=== PATIENT | male | born 1975 | race African-American/Black ===

== ENCOUNTER → 2016-11-21 | Outpatient (CLI) | payer OTHER ==
[2016-11-21 12:43] LABS: ABSOLUTE EOSINOPHILS # (AUTO) 0.3 10^3/uL (0.0-0.6); ABSOLUTE LYMPHOCYTES (AUTO) 1.7 10^3/uL (0.5-4.7); ABSOLUTE MONOCYTES (AUTO) 0.6 10^3/uL (0.1-1.4); ABSOLUTE NEUT (AUTO) 5.6 10^3/uL (1.7-8.2); BASOPHILS % (AUTO) 0.5 % (0-2); EOSINOPHILS % (AUTO) 4.1 % (0-6); HEMATOCRIT 37.5 % (37.9-51.0); HEMOGLOBIN 12.2 g/dL (13.5-17.0); HGB HCT DIFFERENCE -0.9; LYMPHOCYTES % (AUTO) 20.5 % (13-45); MEAN CORPUSCULAR HEMOGLOBIN 29.4 pg (27.0-33.4); MEAN CORPUSCULAR HGB CONC 32.6 g/dL (32.0-36.0); MEAN CORPUSCULAR VOLUME 90 fl (80-97); MONOCYTES % (AUTO) 7.5 % (3-13); RED BLOOD COUNT 4.17 10^6/uL (4.35-5.55); RED CELL DISTRIBUTION WIDTH 15.1 % (11.5-14.0); SEGMENTED NEUTROPHILS % (AUTO) 67.4 % (42-78); WHITE BLOOD COUNT 8.3 10^3/uL (4.0-10.5)
[2016-11-21 13:19] LABS: ALANINE AMINOTRANSFERASE 21 U/L (21-72); ALBUMIN 3.6 g/dL (3.5-5.0); ALKALINE PHOSPHATASE 73 U/L (38-126); ANION GAP 13 (5-19); ASPARTATE AMINO TRANSFERASE 16 U/L (17-59); BILIRUBIN,DIRECT 0.3 mg/dL (0.0-0.4); BILIRUBIN,TOTAL 0.9 mg/dL (0.2-1.3); BLOOD UREA NITROGEN 15 mg/dL (7-20); CALCIUM 9.2 mg/dL (8.4-10.2); CARBON DIOXIDE 26 mmol/L (22-30); CHLORIDE 104 mmol/L (98-107); CREATININE RESULT 1.39 mg/dL (0.52-1.25); Direct HDL 51 mg/dL (>40); GLUCOSE 99 mg/dL (75-110); TOTAL PROTEIN 6.6 g/dL (6.3-8.2); TRIGLYCERIDES 106 mg/dL (<150)
[2016-11-21 13:21] LABS: POTASSIUM 4.2 mmol/L (3.6-5.0)
[2016-11-21 13:30] LABS: DIRECT LDL 82 mg/dL (<100)
== END ==
LOC: OD 11:17
DX: I10 Essential (primary) hypertension (principal); E11.9 Type 2 diabetes mellitus without complications
CPT/HCPCS: 36415; 80053; 80061; 83036; 84153; 84443; 85025

== ENCOUNTER → 2017-05-11 | Outpatient (CLI) | payer OTHER | LOC: CCC 10:10 | DX: D64.9 Anemia, unspecified (principal) | CPT/HCPCS: 36415; 82728; 83540; 83550 ==

== ENCOUNTER 2017-09-25 13:12 | Emergency (ER) | payer SELFPAY ==
--- NOTE | 2017-09-25 15:06 | ER Document Report ---
ED General - General Chief Complaint: Arm Pain Stated Complaint: RIGHT ARM AND HAND PAIN Time Seen by Provider: 09/25/17 14:08 TRAVEL OUTSIDE OF THE [place] IN LAST 30 DAYS: No - HPI Patient complains to provider of: right wrist with electric shock Onset: Last week Onset/Duration: Waxing and waning - worse at night Quality of pain: Sharp Severity: Moderate Associated symptoms: None Exacerbated by: Denies Recently seen / treated by doctor: No - Related Data Allergies/Adverse Reactions: No Known Allergies Allergy (Verified 09/25/17 13:13) Past Medical History - Social History Smoking Status: Never Smoker Family History: Reviewed & Not Pertinent - Past Medical History Cardiac Medical History: Reports: Hx Hypertension - un treated for 3 years Endocrine Medical History: Reports: Hx Diabetes Mellitus Type 2 - no longer needs medication. 11years ago prior to appendectomy Past Surgical History: Reports: Hx Appendectomy, Hx Cholecystectomy, Hx Oral Surgery - Immunizations Hx Diphtheria, Pertussis, Tetanus Vaccination: Yes Review of Systems - Review of Systems Constitutional: No symptoms reported EENT: No symptoms reported Cardiovascular: No symptoms reported Respiratory: No symptoms reported Gastrointestinal: No symptoms reported Genitourinary: No symptoms reported Male Genitourinary: No symptoms reported Musculoskeletal: No symptoms reported Skin: No symptoms reported Hematologic/Lymphatic: No symptoms reported Neurological/Psychological: See HPI Physical Exam - Vital signs Vitals: Temp Pulse Resp BP Pulse Ox 98.8 F 81 16 138/87 H 98 09/25/17 13:23 09/25/17 13:23 09/25/17 13:23 09/25/17 13:23 09/25/17 13:23 - Notes Notes: PHYSICAL EXAMINATION: GENERAL: Well-appearing, well-nourished and in no acute distress. HEAD: Atraumatic, normocephalic. EYES: Pupils equal round and reactive to light, extraocular movements intact, sclera anicteric, conjunctiva are normal. ENT: Nares patent, oropharynx clear without exudates. Moist mucous membranes. NECK: Normal range of motion, supple without lymphadenopathy LUNGS: Breath sounds clear to auscultation bilaterally and equal. No wheezes rales or rhonchi. HEART: Regular rate and rhythm without murmurs ABDOMEN: Soft, nontender, nondistended abdomen. No guarding, no rebound. No masses appreciated. Musculoskeletal: Normal range of motion, no pitting or edema. No cyanosis. NEUROLOGICAL: Cranial nerves grossly intact. Normal speech, normal gait. Normal sensory, motor exams positive Phalen's and Tinel's right upper extremity. Upper extremity neurovascular intact. +2 radial pulse. No tingling with palpation over ulnar nerve. Range of motion of right upper shoulder area without pain reproducing of symptoms PSYCH: Normal mood, normal affect. SKIN: Warm, Dry, normal turgor, no rashes or lesions noted. Course - Vital Signs Vital signs: Temp Pulse Resp BP Pulse Ox 98.1 F 83 18 132/79 H 97 09/25/17 15:24 09/25/17 15:24 09/25/17 15:24 09/25/17 15:24 09/25/17 15:24 Discharge - Discharge Clinical Impression: Carpal tunnel syndrome of right wrist Condition: Stable Disposition: HOME, SELF-CARE Instructions: Carpal Tunnel Syndrome ([facility]) Prescriptions: Naproxen 500 mg PO BID 5 Days #10 tablet Referrals: AMANDA BENDER DO [ACTIVE STAFF] - Follow up in 3-5 days
[2017-09-25 15:26] VITALS: BP 132/79
== END 2017-09-25 15:24 | disposition home or self-care (01) ==
LOC: ER 13:12
DX: G56.01 Carpal tunnel syndrome, right upper limb (principal); E11.9 Type 2 diabetes mellitus without complications; I10 Essential (primary) hypertension
CPT/HCPCS: 99283; L3908

== ENCOUNTER → 2018-08-07 | Outpatient (CLI) | payer OTHER ==
[2018-08-07 11:24] LABS: ABSOLUTE EOSINOPHILS # (AUTO) 0.3 10^3/uL (0.0-0.6); ABSOLUTE MONOCYTES (AUTO) 0.5 10^3/uL (0.1-1.4); ABSOLUTE NEUT (AUTO) 5.4 10^3/uL (1.7-8.2); BASOPHILS % (AUTO) 0.5 % (0-2); EOSINOPHILS % (AUTO) 3.3 % (0-6); HEMATOCRIT 38.2 % (37.9-51.0); HEMOGLOBIN 12.9 g/dL (13.5-17.0); LYMPHOCYTES % (AUTO) 24.6 % (13-45); MEAN CORPUSCULAR HEMOGLOBIN 30.3 pg (27.0-33.4); MEAN CORPUSCULAR HGB CONC 33.7 g/dL (32.0-36.0); MEAN CORPUSCULAR VOLUME 90 fl (80-97); MONOCYTES % (AUTO) 6.2 % (3-13); PLATELET COUNT 424 10^3/uL (150-450); RED BLOOD COUNT 4.25 10^6/uL (4.35-5.55); SEGMENTED NEUTROPHILS % (AUTO) 65.4 % (42-78); TOTAL CELLS COUNTED % (AUTO) 100 %; WHITE BLOOD COUNT 8.3 10^3/uL (4.0-10.5)
[2018-08-07 11:40] LABS: ALANINE AMINOTRANSFERASE 16 U/L (21-72); ALKALINE PHOSPHATASE 73 U/L (38-126); ANION GAP 10 (5-19); ASPARTATE AMINO TRANSFERASE 17 U/L (17-59); BILIRUBIN,DIRECT 0.2 mg/dL (0.0-0.4); BILIRUBIN,TOTAL 0.8 mg/dL (0.2-1.3); BLOOD UREA NITROGEN 21 mg/dL (7-20); CARBON DIOXIDE 26 mmol/L (22-30); CHLORIDE 105 mmol/L (98-107); CHOLESTEROL 183.74 mg/dL (0-200); GLUCOSE 107 mg/dL (75-110); POTASSIUM 5.3 mmol/L (3.6-5.0); SODIUM 141.3 mmol/L (137-145); TOTAL PROTEIN 7.3 g/dL (6.3-8.2); TRIGLYCERIDES 108 mg/dL (<150)
[2018-08-07 11:51] LABS: DIRECT LDL 98 mg/dL (<100)
== END ==
LOC: CCC 09:52
DX: E11.8 Type 2 diabetes mellitus with unspecified complications (principal)
CPT/HCPCS: 36415; 80053; 80061; 83036; 84153; 84443; 85025

== ENCOUNTER 2019-02-01 19:37 | Emergency (ER) | payer SELFPAY ==
[2019-02-01] MEDS ORDERED: FENTANYL CITRATE INJ/PF 100 MCG/2 ML AMPUL IV ONE (21:45)
[2019-02-01] MEDS ORDERED: ONDANSETRON HCL INJ/PF 4 MG/2 ML SDV IV ONE (21:45)
--- NOTE | 2019-02-01 21:47 | ER Document Report ---
ED Medical Screen (RME) - General Chief Complaint: Abdominal Pain Stated Complaint: ABDOMINAL PAIN Time Seen by Provider: 02/01/19 21:44 Primary Care Provider: GWYN TORREZ [Primary Care Provider] - Follow up as needed Notes: Patient is a 43-year-old male morbidly obese presents to the emergency department for right-sided abdominal pain started around 930 this morning. Patient is complaining of generalized upper and lower right-sided abdominal pain. States he has vomited upwards of 6 times denying any blood. Patient's denying any diarrhea or fever. Patient states he does have a history of a cholecystectomy but is denying any other abdominal surgeries. GENERAL: Alert, interacts well. No acute distress. ABDOMEN: Morbidly obese soft, Non-distended. Bowel sounds present in all 4 quadrants. Generalized tenderness noted entire right abdomen upper and lower quadrants Exam somewhat limited due to patient sitting in a chair and excess subcutaneous tissue. I have greeted and performed a rapid initial assessment of this patient. A comprehensive ED assessment and evaluation of the patient, analysis of test results and completion of the medical decision making process will be conducted by additional ED providers. TRAVEL OUTSIDE OF THE [place] IN LAST 30 DAYS: No - Related Data Allergies/Adverse Reactions: No Known Allergies Allergy (Verified 02/01/19 19:40) Past Medical History - Past Medical History Cardiac Medical History: Reports: Hx Hypertension - un treated for 3 years Endocrine Medical History: Reports: Hx Diabetes Mellitus Type 2 - no longer needs medication. 11years ago prior to appendectomy Renal/ Medical History: Denies: Hx Peritoneal Dialysis Past Surgical History: Reports: Hx Appendectomy, Hx Cholecystectomy, Hx Oral Surgery - Immunizations Hx Diphtheria, Pertussis, Tetanus Vaccination: Yes Physical Exam - Vital signs Vitals: Temp Pulse Resp BP Pulse Ox 99.3 F 78 15 148/79 H 97 02/01/19 19:46 02/01/19 19:46 02/01/19 19:46 02/01/19 19:46 02/01/19 19:46 Course - Vital Signs Vital signs: Temp Pulse Resp BP Pulse Ox 99.3 F 78 15 148/79 H 97 02/01/19 19:46 02/01/19 19:46 02/01/19 19:46 02/01/19 19:46 02/01/19 19:46 Doctor's Discharge - Discharge Referrals: [facility] [Primary Care Provider] - Follow up as needed
[2019-02-01 22:48] LABS: ABSOLUTE BASOPHILS # (AUTO) 0.1 10^3/uL (0.0-0.2); ABSOLUTE EOSINOPHILS # (AUTO) 0.1 10^3/uL (0.0-0.6); ABSOLUTE LYMPHOCYTES (AUTO) 1.2 10^3/uL (0.5-4.7); ABSOLUTE MONOCYTES (AUTO) 0.9 10^3/uL (0.1-1.4); ABSOLUTE NEUT (AUTO) 11.7 10^3/uL (1.7-8.2); BASOPHILS % (AUTO) 0.7 % (0-2); EOSINOPHILS % (AUTO) 0.8 % (0-6); HEMATOCRIT 39.4 % (37.9-51.0); HEMOGLOBIN 12.8 g/dL (13.5-17.0); LYMPHOCYTES % (AUTO) 8.8 % (13-45); MEAN CORPUSCULAR HEMOGLOBIN 29.4 pg (27.0-33.4); MEAN CORPUSCULAR HGB CONC 32.6 g/dL (32.0-36.0); MEAN CORPUSCULAR VOLUME 90 fl (80-97); MONOCYTES % (AUTO) 6.2 % (3-13); PLATELET COUNT 352 10^3/uL (150-450); RED BLOOD COUNT 4.36 10^6/uL (4.35-5.55); RED CELL DISTRIBUTION WIDTH 15.1 % (11.5-14.0); SEGMENTED NEUTROPHILS % (AUTO) 83.5 % (42-78); TOTAL CELLS COUNTED % (AUTO) 100 %
[2019-02-01 23:19] LABS: APPEARANCE,URINE SLIGHTLY-CLOUDY; BILIRUBIN,URINE NEGATIVE (NEGATIVE); COLOR,URINE YELLOW; GLUCOSE, URINE NEGATIVE (NEGATIVE); KETONES,URINE NEGATIVE (NEGATIVE); LEUKOCYTE ESTERASE,URINE NEGATIVE (NEGATIVE); NITRITE,URINE NEGATIVE (NEGATIVE); PROTEIN,URINE NEGATIVE (NEGATIVE); URINE SPECIFIC GRAVITY 1.019; UROBILINOGEN,URINE NEGATIVE mg/dL (<2.0)
[2019-02-02 00:59] LABS: ALANINE AMINOTRANSFERASE 31 U/L (21-72); ALBUMIN 3.7 g/dL (3.5-5.0); ALKALINE PHOSPHATASE 76 U/L (38-126); ANION GAP 12 (5-19); ASPARTATE AMINO TRANSFERASE 22 U/L (17-59); BILIRUBIN,DIRECT 0.3 mg/dL (0.0-0.4); BILIRUBIN,TOTAL 1.2 mg/dL (0.2-1.3); BLOOD UREA NITROGEN 22 mg/dL (7-20); CALCIUM 9.3 mg/dL (8.4-10.2); CARBON DIOXIDE 19 mmol/L (22-30); CHLORIDE 110 mmol/L (98-107); GLUCOSE 130 mg/dL (75-110); SODIUM 140.8 mmol/L (137-145)
[2019-02-02] MEDS ORDERED: MORPHINE SULFATE 10 MG/ML INJ ONE (01:33)
[2019-02-02] MEDS ORDERED: MORPHINE SULFATE 10 MG/ML INJ IV ONE (01:36)
--- NOTE | 2019-02-02 02:15 | RADIOLOGY REPORT (SQ) ---
EXAM DESCRIPTION: CT ABDOMEN PELVIS WITHOUT IV CONTRAST COMPLETED DATE/TME: 02/02/2019 01:14 CLINICAL HISTORY: 43 years, Male, ab pain, arf COMPARISON: 09/21/2015 CT TECHNIQUE: 378 Images stored on PACS. All CT scanners at this facility use dose modulation, iterative reconstruction, and/or weight based dosing when appropriate to reduce radiation dose to as low as reasonably achievable (ALARA). [facility]: Dose Right [facility]: CareDose [facility]: Dose Right [facility]: Teradose 4D [facility]: [employer] LIMITATIONS: None. FINDINGS: The visual is lung bases are unremarkable. Osseous structures are grossly intact. The liver, spleen, left adrenal glands, pancreas, kidneys are unremarkable. Stable right adrenal adenoma. Negative for urinary tract calculus or hydronephrosis. Sigmoid diverticulosis without CT evidence for diverticulitis. No gross evidence for bowel obstruction. Status post cholecystectomy. The appendix is not well seen. No pericecal inflammation to suggest acute appendicitis. Fat-containing umbilical hernia. IMPRESSION: Negative for acute intra-abdominal/pelvic process. Sigmoid diverticulosis without CT evidence for diverticulitis. Stable right adrenal adenoma. TECHNICAL DOCUMENTATION: Quality ID # [id number]: Final reports with documentation of one or more dose reduction techniques (e.g., Automated exposure control, adjustment of the mA and/or kV according to patient size, use of iterative reconstruction technique) copyright 2011 [employer]- All Rights Reserved
[2019-02-02] MEDS ORDERED: NORMAL SALINE 1000 ML 1,000 ML IV ONE (02:53)
[2019-02-02] MEDS ORDERED: CEPHALEXIN 500 MG CAPSULE PO ONE (03:02)
--- NOTE | 2019-02-02 03:04 | ER Document Report ---
ED General - General Chief Complaint: Abdominal Pain Stated Complaint: ABDOMINAL PAIN Time Seen by Provider: 02/01/19 21:44 Primary Care Provider: [facility] [Primary Care Provider] - Follow up in 3-5 days Notes: Patient is a 43-year-old male with past medical history of morbid obesity, insulin-dependent type 2 diabetes, chronic kidney dysfunction, presents with approximately 16 hours of right-sided abdominal pain. Patient is a prior surgical history of a cholecystectomy and is uncertain whether he still has his appendix. Describes the pain as being a throbbing, cramping, moderate to severe pain. States that it comes in waves, improved at the time of my assessment. No obvious exacerbating or alleviating factor. Has had some associated nausea and vomiting but denies diarrhea. Has been able to tolerate oral intake since the onset of symptoms. Has not seen his general physician regarding today's concerns. States he has had similar episodes in the past of unclear etiology. Has not had a fever. TRAVEL OUTSIDE OF THE [place] IN LAST 30 DAYS: No - Related Data Allergies/Adverse Reactions: No Known Allergies Allergy (Verified 02/01/19 19:40) Past Medical History - General Information source: Patient - Social History Smoking Status: Never Smoker Frequency of alcohol use: None Drug Abuse: None Lives with: Family Family History: Reviewed & Not Pertinent Patient has suicidal ideation: No Patient has homicidal ideation: No - Past Medical History Cardiac Medical History: Reports: Hx Hypertension - un treated for 3 years Endocrine Medical History: Reports: Hx Diabetes Mellitus Type 2 - no longer needs medication. 11years ago prior to appendectomy Renal/ Medical History: Denies: Hx Peritoneal Dialysis Past Surgical History: Reports: Hx Appendectomy, Hx Cholecystectomy, Hx Oral Surgery - Immunizations Hx Diphtheria, Pertussis, Tetanus Vaccination: Yes Review of Systems - Review of Systems Notes: Constitutional: Negative for fever. HENT: Negative for sore throat. Eyes: Negative for visual changes. Cardiovascular: Negative for chest pain. Respiratory: Negative for shortness of breath. Gastrointestinal: Positive for abdominal pain, vomiting Genitourinary: Negative for dysuria. Musculoskeletal: Negative for back pain. Skin: Negative for rash. Neurological: Negative for headaches, weakness or numbness. 10 point ROS negative except as marked above and in HPI. Physical Exam - Vital signs Vitals: Temp Pulse Resp BP Pulse Ox 99.3 F 78 15 148/79 H 97 05/31/19 19:46 02/01/19 19:46 02/01/19 19:46 02/01/19 19:46 02/01/19 19:46 Interpretation: Hypertensive Notes: PHYSICAL EXAMINATION: GENERAL: Well-appearing, well-nourished and in no acute distress. HEAD: Atraumatic, normocephalic. EYES: Pupils equal round and reactive to light, extraocular movements intact, sclera anicteric, conjunctiva are normal. ENT: nares patent, oropharynx clear without exudates. Moist mucous membranes. NECK: Normal range of motion, supple without lymphadenopathy LUNGS: Breath sounds clear to auscultation bilaterally and equal. No wheezes rales or rhonchi. HEART: Regular rate and rhythm without murmurs ABDOMEN: Soft, morbidly obese abdomen, nontender, normoactive bowel sounds. No guarding, no rebound. No masses appreciated. EXTREMITIES: Normal range of motion, no pitting or edema. No cyanosis. NEUROLOGICAL: No focal neurological deficits. Moves all extremities spontaneously and on command. PSYCH: Normal mood, normal affect. SKIN: Warm, Dry, normal turgor, no rashes or lesions noted. Course - Re-evaluation Re-evalutation: 02/02/19 03:06 Patient presents with roughly 24 hours of generalized right-sided abdominal pain upper and lower as well as into the right flank. When I initially evaluate the patient is asking for something to eat and drink. States that his pain is overall much improved. On abdominal exam there are no areas of focal tenderness, rebound or guarding. No rigidity. Vitals are within normal limits without fever, tachycardia or hypotension. CT scan of the abdomen pelvis obtained without contrast due to renal functions which are somewhat worse than when he was seen in September with an approximate drop in his GFR of roughly 10 points. This does not demonstrate any evidence of acute pathology but does not well visualize the appendix. There is no associated evidence of acute appendi citis and the patient does not have any focal tenderness to the right lower quadrant nor is his history entirely consistent with a diagnosis of appendicitis. Patient states that he is following with his general physician regarding his chronic kidney disease. Pattern is not consistent with a prerenal azotemia. Patient has received IV fluids, antiemetics and is tolerating oral intake without any difficult. I have advised the patient that there is uncertainty regarding the cause of his symptoms today and he needs have a very low threshold to return to the emergency department. Given that he has gross hematuria nephrolithiasis that has since passed is certainly on the differential versus possible hemorrhagic cystitis. Empirically treating with a course of antibiotics. At this time will discharge with return precautions and follow-up recommendations. Verbal discharge instructions given a the bedside and opportunity for questions given. Medication warnings reviewed. Patient is in agr eement with this plan and has verbalized understanding of return precautions and the need for primary care follow-up in the next 24-72 hours. - Vital Signs Vital signs: Temp Pulse Resp BP Pulse Ox 99.3 F 78 15 148/79 H 97 02/01/19 19:46 02/01/19 19:46 02/01/19 19:46 02/01/19 19:46 02/01/19 19:46 - Laboratory Result Diagrams: 02/01/19 22:35 02/02/19 00:33 Laboratory results interpreted by me: 02/01/19 02/01/19 02/02/19 22:35 22:55 00:33 WBC 14.0 H Hgb 12.8 L RDW 15.1 H Seg Neutrophils % 83.5 H Lymphocytes % 8.8 L Absolute Neutrophils 11.7 H Chloride 110 H Carbon Dioxide 19 L BUN 22 H Creatinine 2.13 H Est GFR ( Amer) 41 L Est GFR (Non-Af Amer) 34 L Glucose 130 H Urine Blood LARGE H Urine Ascorbic Acid 40 H - Diagnostic Test Radiology reviewed: Reports reviewed Discharge - Discharge Clinical Impression: Morbid obesity with BMI of 70 and over, adult, Acute kidney injury superimposed on chronic kidney disease, Lower abdominal pain, Abdominal pain of unknown etiology Condition: Stable Disposition: HOME, SELF-CARE Additional Instructions: The exact cause of your abdominal pain is uncertain. Your labs are notable for a large amount of blood in your urine which could be related to your lower abdominal pain. The CT scan does not show any acute findings. As we discussed, given that there is an uncertainty about what the exact cause your pain is you need to have a low threshold to return to the emergency department. Please return immediately if you have worsening of your pain, develop a fever greater than 100.4 F, have persistent vomiting, pass out, or have any other symptoms that are worrisome to you. As we have also discussed her kidney functions are not normal and are worse than when you were seen in September. You need to follow-up with the community care in clinic for recheck of your blood work to ensure that your kidney function is not further deteriorating. Prescriptions: Tramadol HCl [Ultram 50 mg Tablet] 50 mg PO Q4HP PRN #6 tab PRN Reason: Cephalexin Monohydrate [Keflex 500 mg Capsule] 500 mg PO Q6H 7 Days capsule Referrals: [facility] [Primary Care Provider] - Follow up in 3-5 days
[2019-02-02] MEDS ORDERED: ONDANSETRON ODT 4 MG TAB (6 TAB/ER DISP) PO PRN (03:05)
[2019-02-02 04:32] VITALS: BP 140/62
== END 2019-02-02 04:31 | disposition home or self-care (01) ==
LOC: ER 19:37
DX: R10.9 Unspecified abdominal pain (principal); R10.30 Lower abdominal pain, unspecified; R10.11 Right upper quadrant pain; R11.2 Nausea with vomiting, unspecified; I12.9 Hypertensive chronic kidney disease with stage 1 through stage 4 chronic kidney disease, or unspecified chronic kidney disease; E11.22 Type 2 diabetes mellitus with diabetic chronic kidney disease; N18.9 Chronic kidney disease, unspecified; N17.9 Acute kidney failure, unspecified; E66.01 Morbid (severe) obesity due to excess calories; Z68.45 Body mass index [BMI] 70 or greater, adult; Z79.4 Long term (current) use of insulin; Z90.49 Acquired absence of other specified parts of digestive tract
CPT/HCPCS: 99284; 96374; 96375; 36415; 85025; 80053; 81001; 74176; J3010; J2270; J2405; J7030

== ENCOUNTER → 2019-02-06 | Outpatient (CLI) | payer OTHER ==
[2019-02-06 11:04] LABS: APPEARANCE,URINE CLEAR; BILIRUBIN,URINE NEGATIVE (NEGATIVE); COLOR,URINE YELLOW; GLUCOSE, URINE NEGATIVE (NEGATIVE); KETONES,URINE NEGATIVE (NEGATIVE); LEUKOCYTE ESTERASE,URINE NEGATIVE (NEGATIVE); NITRITE,URINE NEGATIVE (NEGATIVE); PROTEIN,URINE NEGATIVE (NEGATIVE); URINE SPECIFIC GRAVITY 1.015; UROBILINOGEN,URINE NEGATIVE mg/dL (<2.0)
[2019-02-06 11:31] LABS: ALANINE AMINOTRANSFERASE 47 U/L (21-72); ALBUMIN 3.8 g/dL (3.5-5.0); ALKALINE PHOSPHATASE 91 U/L (38-126); ANION GAP 9 (5-19); ASPARTATE AMINO TRANSFERASE 39 U/L (17-59); BILIRUBIN,DIRECT 0.3 mg/dL (0.0-0.4); BILIRUBIN,TOTAL 0.8 mg/dL (0.2-1.3); BLOOD UREA NITROGEN 18 mg/dL (7-20); CALCIUM 9.3 mg/dL (8.4-10.2); CARBON DIOXIDE 27 mmol/L (22-30); CHLORIDE 104 mmol/L (98-107); GLUCOSE 99 mg/dL (75-110); POTASSIUM 5.1 mmol/L (3.6-5.0); SODIUM 139.9 mmol/L (137-145); TOTAL PROTEIN 6.6 g/dL (6.3-8.2)
== END ==
LOC: CCC 09:56
DX: Z00.00 Encounter for general adult medical examination without abnormal findings (principal); I12.9 Hypertensive chronic kidney disease with stage 1 through stage 4 chronic kidney disease, or unspecified chronic kidney disease; N18.3 Chronic kidney disease, stage 3 (moderate); E11.22 Type 2 diabetes mellitus with diabetic chronic kidney disease; R31.9 Hematuria, unspecified
CPT/HCPCS: 36415; 80053; 81001

== ENCOUNTER 2019-04-20 12:49 | Emergency (ER) | payer OTHER ==
[2019-04-20 12:56] VITALS: BP 116/76
[2019-04-20] MEDS ORDERED: HYDROCODONE/ACETAMINOPHEN 5-325 MG TABLET PO ONE (13:23)
--- NOTE | 2019-04-20 13:24 | ER Document Report ---
HPI - HPI Patient complains to provider of: right knee pain Time Seen by Provider: 04/20/19 13:01 Onset: Last week Onset/Duration: Persistent Quality of pain: Achy Pain Level: 3 Context: Patient presents complaining of right knee pain for the past week. Patient denies any injury or fever. Associated Symptoms: Other - Right knee pain Exacerbated by: Standing, Movement, Walking Relieved by: Denies Similar symptoms previously: No Recently seen / treated by doctor: No - ROS ROS below otherwise negative: Yes Systems Reviewed and Negative: Yes All other systems reviewed and negative - CONSTITUTIONAL Constitutional: DENIES: Fever, Chills - NEURO Neurology: DENIES: Weakness - MUSCULOSKELETAL Musculoskeletal: REPORTS: Extremity pain - RIGHT KNEE. DENIES: Swelling - DERM Skin Color: Normal Skin Problems: None Past Medical History - General Information source: Patient - Social History Smoking Status: Never Smoker Chew tobacco use (# tins/day): No Frequency of alcohol use: None Drug Abuse: None Occupation: none Family History: Reviewed & Not Pertinent Patient has suicidal ideation: No Patient has homicidal ideation: No - Past Medical History Cardiac Medical History: Reports: Hx Hypertension - un treated for 3 years Endocrine Medical History: Reports: Hx Diabetes Mellitus Type 2 - no longer needs medication. 11years ago prior to appendectomy Renal/ Medical History: Denies: Hx Peritoneal Dialysis Past Surgical History: Reports: Hx Appendectomy, Hx Cholecystectomy, Hx Oral Surgery - Immunizations Hx Diphtheria, Pertussis, Tetanus Vaccination: Yes Vertical Provider Document - CONSTITUTIONAL Agree With Documented VS: Yes Exam Limitations: No Limitations General Appearance: WD/WN, No Apparent Distress Notes: Morbidly obese - INFECTION CONTROL TRAVEL OUTSIDE OF THE [place] IN LAST 30 DAYS: No - HEENT HEENT: Atraumatic, Normocephalic - NECK Neck: Normal Inspection - RESPIRATORY Respiratory: No Respiratory Distress - CARDIOVASCULAR Pulses: Normal: Dorsalis pedis - MUSCULOSKELETAL/EXTREMETIES Musculoskeletal/Extremeties: MAEW, Tender - Right knee joint tenderness to medial anterior compartment, no obvious effusion. Tenderness increases with attempts to flex the knee. Normal skin color and temperature overlying joint, No Edema - NEURO Level of Consciousness: Awake, Alert, Appropriate - DERM Integumentary: Warm, Dry, No Rash Course - Re-evaluation Re-evalutation: 04/20/19 No concern for fracture or dislocation. Patient with out fever, no concern for septic arthritis. Patient is morbidly obese. Discussed weight management with patient. Patient encouraged to follow-up with orthopedics for further evaluation. - Vital Signs Vital signs: Temp Pulse Resp BP Pulse Ox 99.2 F 92 18 116/76 95 04/20/19 12:55 04/20/19 12:55 04/20/19 12:55 04/20/19 12:55 04/20/19 12:55 - Diagnostic Test Radiology reviewed: Image reviewed, Reports reviewed Procedures - Immobilization Right Knee Pre-Proc Neuro Vasc Exam: Normal Immobilizer type: Bob wrap Performed by: PCT Post-Proc Neuro Vasc Exam: Normal Alignment checked and good: Yes Discharge - Discharge Clinical Impression: Arthritis Right knee pain Qualifiers: Chronicity: unspecified Qualified Code(s): M25.561 - Pain in right knee Condition: Stable Disposition: HOME, SELF-CARE Instructions: Bob Wrap ([facility]), Arthritis ([facility]), Ultram ([facility]) Additional Instructions: Return immediately for any new or worsening symptoms Followup with your primary care provider, call tomorrow to make a followup appointment Follow-up with orthopedics for further evaluation, call Monday for an appointment Prescriptions: Diclofenac Sodium 4 gm TP QID PRN #100 gel..gram. PRN Reason: Tramadol HCl [Ultram 50 mg Tablet] 50 mg PO ASDIR PRN #15 tablet PRN Reason: Referrals: [facility] [Primary Care Provider] - Follow up as needed [facility] [Provider Group] - Follow up in 3-5 days
--- NOTE | 2019-04-20 14:04 | RADIOLOGY REPORT (SQ) ---
EXAM DESCRIPTION: KNEE RIGHT 3 VIEWS COMPLETED DATE/TIME: 04/20/2019 1:45 pm REASON FOR STUDY: r knee pain COMPARISON: None. NUMBER OF VIEWS: Three views. TECHNIQUE: AP, lateral, and sunrise patella radiographic images acquired of the right knee. LIMITATIONS: None. FINDINGS: MINERALIZATION: Normal. BONES: No acute fracture or dislocation. No worrisome bone lesions. Mild tricompartmental degenerat luis enrique changes. Quadriceps enthesopathy. JOINT: No effusion. SOFT TISSUES: No soft tissue swelling. No radio-opaque foreign body. OTHER: No other significant finding. IMPRESSION: Mild tricompartmental degenerative changes. No evidence of acute osseous injury. TECHNICAL DOCUMENTATION: JOB ID: [id number] Richard [employer] - [employer]- All Rights Reserved Reading location - IP/workstation name: [email or web address]
== END 2019-04-20 14:29 | disposition home or self-care (01) ==
LOC: ER 12:49
DX: M19.90 Unspecified osteoarthritis, unspecified site (principal); M25.561 Pain in right knee; I10 Essential (primary) hypertension; E11.9 Type 2 diabetes mellitus without complications; E66.01 Morbid (severe) obesity due to excess calories
CPT/HCPCS: 99283

== ENCOUNTER → 2019-04-30 | Outpatient (CLI) | payer OTHER ==
[2019-04-30 11:57] LABS: ANION GAP 10 (5-19); BLOOD UREA NITROGEN 36 mg/dL (7-20); CALCIUM 9.4 mg/dL (8.4-10.2); CARBON DIOXIDE 24 mmol/L (22-30); CHLORIDE 106 mmol/L (98-107); CHOLESTEROL 116.97 mg/dL (0-200); GLUCOSE 96 mg/dL (75-110); POTASSIUM 4.8 mmol/L (3.6-5.0); TRIGLYCERIDES 77 mg/dL (<150)
[2019-04-30 12:08] LABS: DIRECT LDL 49 mg/dL (<100)
== END ==
LOC: OD 10:15
DX: I10 Essential (primary) hypertension (principal); E11.8 Type 2 diabetes mellitus with unspecified complications
CPT/HCPCS: 36415; 80048; 80061

== ENCOUNTER 2019-06-01 00:46 | Emergency (ER) | payer OTHER ==
[2019-06-01 00:55] VITALS: BP 150/83
[2019-06-01] MEDS ORDERED: PENICILLIN V POTASSIUM 500 MG TABLET PO ONE (04:13)
[2019-06-01] MEDS ORDERED: HYDROCODONE/ACETAMINOPHEN 5-325 MG (6 TAB/ER DISP) PO PRN (04:14)
--- NOTE | 2019-06-01 04:16 | ER Document Report ---
HPI - HPI Time Seen by Provider: 06/01/19 04:04 Pain Level: 5 Context: Patient is a 43-year-old male that comes to the emergency department for chief complaint of pain in the right side of his face and lower jaw. 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 He states that he has had to have teeth extracted previously and he is pending additional extractions. He denies sore throat, neck pain, difficulty swallowing, fever, or any other complaints. Symptoms started yesterday. - REPRODUCTIVE Reproductive: DENIES: : Past Medical History - General Information source: Patient - Social History Smoking Status: Never Smoker Frequency of alcohol use: None Drug Abuse: None Lives with: Family Family History: Reviewed & Not Pertinent Patient has suicidal ideation: No Patient has homicidal ideation: No - Past Medical History Cardiac Medical History: Reports: Hx Hypertension - un treated for 3 years Endocrine Medical History: Reports: Hx Diabetes Mellitus Type 2 - no longer need s medication. 11years ago prior to appendectomy Renal/ Medical History: Denies: Hx Peritoneal Dialysis Past Surgical History: Reports: Hx Appendectomy, Hx Cholecystectomy, Hx Oral Surgery - Immunizations Hx Diphtheria, Pertussis, Tetanus Vaccination: Yes Vertical Provider Document - CONSTITUTIONAL General Appearance: WD/WN, No Apparent Distress - INFECTION CONTROL TRAVEL OUTSIDE OF THE [place] IN LAST 30 DAYS: No - HEENT HEENT: Atraumatic, Normocephalic, PERRLA. negative: Conjuctival Injection, Pharyngeal Exudate, Pharyngeal Tenderness, Pharyngeal Erythema Mouth Diagram: 1 - Large broken tooth with erythema and swelling of the gumline which is mild, there is tenderness with palpation but there is no fluctuance or induration. Widespread dental caries otherwise but no other concerning a normality noted. Normal oral pharyngeal exam otherwise. - NECK Neck: Normal Inspection - RESPIRATORY Respiratory: Breath Sounds Normal, No Respiratory Distress - CARDIOVASCULAR Cardiovascular: Regular Rate, Regular Rhythm - GI/ABDOMEN Gastrointestinal: Abdomen Soft, Abdomen Non-Tender - BACK Back: Normal Inspection - MUSCULOSKELETAL/EXTREMETIES Musculoskeletal/Extremeties: MAEW, FROM, Non-Tender - NEURO Level of Consciousness: Awake, Alert, Appropriate Motor/Sensory: No Motor Deficit, No Sensory Deficit - DERM Integumentary: Warm, Dry, No Rash Course - Re-evaluation Re-evalutation: No evidence of abscess, Preet angina, or other concerning finding on my evaluation. Appears to be simple early dental infection. Started on antibiotics, referred to dentist, discussed return precautions. Patient states understanding and agreement. - Vital Signs Vital signs: Temp Pulse Resp BP Pulse Ox 98.3 F 78 18 150/83 H 100 06/01/19 00:54 06/01/19 00:54 06/01/19 00:54 06/01/19 00:54 06/01/19 00:54 Discharge - Discharge Clinical Impression: Pain, dental, Dental infection Condition: Stable Disposition: HOME, SELF-CARE Additional Instructions: Your evaluation is consistent with a dental infection. Take antibiotics as prescribed to completion. Follow-up closely with the dental referral listed below or this will continue to occur. Come back if you are worse including increased swelling of the face. [facility] Include [facility] [address] [place] [address], [id number] Prescriptions: Penicillin V Potassium [Penicillin Vk 500 mg Tablet] 500 mg PO BID #20 tablet Referrals: [facility] [Primary Care Provider] - Follow up as needed
== END 2019-06-01 04:52 | disposition home or self-care (01) ==
LOC: ER 00:46
DX: K04.7 Periapical abscess without sinus (principal); K02.9 Dental caries, unspecified; K08.89 Other specified disorders of teeth and supporting structures; I10 Essential (primary) hypertension; E11.9 Type 2 diabetes mellitus without complications
CPT/HCPCS: 99282

== ENCOUNTER → 2019-08-07 | Outpatient (CLI) | payer OTHER ==
[2019-08-08 14:40] LABS: ANION GAP 11 (5-19); BLOOD UREA NITROGEN 23 mg/dL (7-20); CALCIUM 9.4 mg/dL (8.4-10.2); CARBON DIOXIDE 22 mmol/L (22-30); CHLORIDE 108 mmol/L (98-107); GLUCOSE 163 mg/dL (75-110); POTASSIUM 4.3 mmol/L (3.6-5.0)
== END ==
LOC: CCC 10:08
DX: Z53.9 Procedure and treatment not carried out, unspecified reason (principal)
CPT/HCPCS: 36415; 80048

== ENCOUNTER → 2019-09-10 | Outpatient (CLI) | payer OTHER ==
[2019-09-10 10:59] LABS: ANION GAP 10 (5-19); BLOOD UREA NITROGEN 17 mg/dL (7-20); CARBON DIOXIDE 25 mmol/L (22-30); CHLORIDE 105 mmol/L (98-107); GLUCOSE 107 mg/dL (75-110); POTASSIUM 4.8 mmol/L (3.6-5.0)
== END ==
LOC: CCC 09:34
DX: E11.9 Type 2 diabetes mellitus without complications (principal)
CPT/HCPCS: 36415; 80048; 83036

== ENCOUNTER → 2020-03-19 | Outpatient (CLI) | payer OTHER ==
[2020-03-19 10:41] LABS: ABSOLUTE BASOPHILS # (AUTO) 0.1 10^3/uL (0.0-0.2); ABSOLUTE EOSINOPHILS # (AUTO) 0.4 10^3/uL (0.0-0.6); ABSOLUTE LYMPHOCYTES (AUTO) 2.3 10^3/uL (0.5-4.7); ABSOLUTE MONOCYTES (AUTO) 0.8 10^3/uL (0.1-1.4); ABSOLUTE NEUT (AUTO) 6.9 10^3/uL (1.7-8.2); BASOPHILS % (AUTO) 0.5 % (0-2); EOSINOPHILS % (AUTO) 4.1 % (0-6); HEMATOCRIT 36.7 % (37.9-51.0); LYMPHOCYTES % (AUTO) 21.7 % (13-45); MEAN CORPUSCULAR HEMOGLOBIN 29.1 pg (27.0-33.4); MEAN CORPUSCULAR HGB CONC 32.8 g/dL (32.0-36.0); MEAN CORPUSCULAR VOLUME 89 fl (80-97); MONOCYTES % (AUTO) 7.2 % (3-13); PLATELET COUNT 417 10^3/uL (150-450); RED BLOOD COUNT 4.14 10^6/uL (4.35-5.55); SEGMENTED NEUTROPHILS % (AUTO) 66.5 % (42-78); TOTAL CELLS COUNTED % (AUTO) 100 %; WHITE BLOOD COUNT 10.4 10^3/uL (4.0-10.5)
[2020-03-19 11:20] LABS: ALBUMIN 3.7 g/dL (3.5-5.0); ALKALINE PHOSPHATASE 75 U/L (38-126); ANION GAP 9 (5-19); ASPARTATE AMINO TRANSFERASE 22 U/L (17-59); BILIRUBIN,TOTAL 0.8 mg/dL (0.2-1.3); BLOOD UREA NITROGEN 21 mg/dL (7-20); CALCIUM 9.3 mg/dL (8.4-10.2); CARBON DIOXIDE 24 mmol/L (22-30); CHLORIDE 105 mmol/L (98-107); CHOLESTEROL 116.05 mg/dL (0-200); GLUCOSE 102 mg/dL (75-110); POTASSIUM 4.8 mmol/L (3.6-5.0); TOTAL PROTEIN 6.9 g/dL (6.3-8.2); TRIGLYCERIDES 127 mg/dL (<150)
[2020-03-19 11:31] LABS: DIRECT LDL 41 mg/dL (<100)
== END ==
LOC: CCC 09:41
PROVIDERS: ATTEND Internal Medicine
DX: E11.8 Type 2 diabetes mellitus with unspecified complications (principal); I10 Essential (primary) hypertension
CPT/HCPCS: 36415; 80053; 80061; 83036; 84153; 84443; 85025

== ENCOUNTER 2020-08-20 02:20 | Emergency (ER) | payer SELFPAY ==
[2020-08-20 04:06] LABS: ABSOLUTE BASOPHILS # (AUTO) 0.1 10^3/uL (0.0-0.2); ABSOLUTE EOSINOPHILS # (AUTO) 0.3 10^3/uL (0.0-0.6); ABSOLUTE LYMPHOCYTES (AUTO) 2.3 10^3/uL (0.5-4.7); ABSOLUTE MONOCYTES (AUTO) 0.7 10^3/uL (0.1-1.4); ABSOLUTE NEUT (AUTO) 10.3 10^3/uL (1.7-8.2); HEMATOCRIT 40.3 % (37.9-51.0); MEAN CORPUSCULAR HEMOGLOBIN 28.8 pg (27.0-33.4); MEAN CORPUSCULAR HGB CONC 32.3 g/dL (32.0-36.0); MEAN CORPUSCULAR VOLUME 89 fl (80-97); MONOCYTES % (AUTO) 5.1 % (3-13); PLATELET COUNT 399 10^3/uL (150-450); RED BLOOD COUNT 4.51 10^6/uL (4.35-5.55); RED CELL DISTRIBUTION WIDTH 15.3 % (11.5-14.0); SEGMENTED NEUTROPHILS % (AUTO) 74.9 % (42-78); TOTAL CELLS COUNTED % (AUTO) 100 %; WHITE BLOOD COUNT 13.8 10^3/uL (4.0-10.5)
[2020-08-20 04:16] LABS: APPEARANCE,URINE CLEAR; BILIRUBIN,URINE NEGATIVE (NEGATIVE); COLOR,URINE YELLOW; GLUCOSE, URINE NEGATIVE (NEGATIVE); KETONES,URINE NEGATIVE (NEGATIVE); LEUKOCYTE ESTERASE,URINE NEGATIVE (NEGATIVE); NITRITE,URINE NEGATIVE (NEGATIVE); PROTEIN,URINE NEGATIVE (NEGATIVE); URINE SPECIFIC GRAVITY 1.021; UROBILINOGEN,URINE NEGATIVE mg/dL (<2.0)
[2020-08-20 04:25] LABS: ALKALINE PHOSPHATASE 95 U/L (38-126); ANION GAP 12 (5-19); ASPARTATE AMINO TRANSFERASE 22 U/L (17-59); BILIRUBIN,TOTAL 0.7 mg/dL (0.2-1.3); BLOOD UREA NITROGEN 21 mg/dL (7-20); CALCIUM 9.7 mg/dL (8.4-10.2); CARBON DIOXIDE 22 mmol/L (22-30); CHLORIDE 104 mmol/L (98-107); GLUCOSE 138 mg/dL (75-110); POTASSIUM 4.5 mmol/L (3.6-5.0); TOTAL PROTEIN 7.5 g/dL (6.3-8.2)
[2020-08-20] MEDS ORDERED: ACETAMINOPHEN 325 MG TABLET PO ONE (08:42)
[2020-08-20] MEDS ORDERED: PANTOPRAZOLE SODIUM 40 MG TABLET.DR PO ONE (08:42)
[2020-08-20] MEDS ORDERED: FAMOTIDINE 20 MG TABLET PO ONE (08:42)
--- NOTE | 2020-08-20 08:49 | ER Document Report ---
ED GI/ - General Chief Complaint: Abdominal Pain Stated Complaint: ABDOMINAL PAIN Time Seen by Provider: 08/20/20 08:28 Primary Care Provider: [facility] [Primary Care Provider] - Follow up as needed Information source: Patient TRAVEL OUTSIDE OF THE [place] IN LAST 30 DAYS: No - HPI Notes: 08/20/20 08:44 This patient is a 45-year-old male who presents complaining of intermittent spastic epigastric pain that has been going on for approximately 3 days. He describes it as sharp stabbing and cramping. He says it comes on spontaneously last anywhere from 15 to 30 minutes and resolves on its own. It does not radiate. It is not related to eating. It is neither exacerbated nor relieved by food or drink. He is never had anything quite like this before. He denies any nausea or vomiting. He has no fever or chills. He denies any hematemesis melena or hematochezia. He has no history of acid peptic disease. He has had a previous cholecystectomy in the remote past and has done well since then. His major problem is morbid obesity and type 2 diabetes. He is on medications for those problems. He does not currently take NSAIDs. He does not drink alcohol or use excessive caffeine. He does not use tobacco. At the time of my in [facility] he is pain-free. He is otherwise in his usual state of health. 08/20/20 08:48 - Related Data Allergies/Adverse Reactions: No Known Allergies Allergy (Verified 08/20/20 08:39) Home Medications: metformin, atorvastatin, lisinopril Past Medical History - General Information source: Patient - Social History Smoking Status: Never Smoker Family History: Reviewed & Not Pertinent - Medical History Medical History: Other Notes: Past medical history as documented in the electronic health record is reviewed. - Past Medical History Cardiac Medical History: Reports: Hx Hypertension - un treated for 3 years Endocrine Medical History: Reports: Hx Diabetes Mellitus Type 2 - no longer needs medication. 11years ago prior to appendectomy Renal/ Medical History: Denies: Hx Peritoneal Dialysis Past Surgical History: Reports: Hx Appendectomy, Hx Cholecystectomy, Hx Oral Surgery - Immunizations Hx Diphtheria, Pertussis, Tetanus Vaccination: Yes Review of Systems - Review of Systems Notes: The patient reports that he has had cervicalgia for about a week. He describes an occipital headache right worse than left that hurts when he moves his head in certain directions. He points to the occipital region and indicates that it is tender to palpation. All other systems are reviewed and are negative or nonc ontributory except as noted in the present illness. Physical Exam - Vital signs Vitals: Temp Pulse Resp BP Pulse Ox 99.0 F 91 16 134/70 H 97 08/20/20 02:35 08/20/20 02:35 08/20/20 02:35 08/20/20 02:35 08/20/20 02:35 - Notes Notes: General: This is a well-developed pleasant obese male in no acute distress. Vital signs and nursing chief complaint are reviewed. HEENT: Unremarkable to inspection. Neck: Patient is tender over the base of the skull on the right. His headache pain can be reproduced and exacerbated when he turns his head to the right and flexes his neck. He has no nuchal rigidity or meningeal signs. Lungs: Clear to auscultation. Heart: Regular rate and rhythm no murmur. Abdomen: Obese, soft, nontender, no masses or guarding. Extremities: Without acute edema. Skin: Warm moist good turgor no rashes. Neuro: Alert and oriented x3. No focal neuro deficits noted. Course - Re-evaluation Re-evalutation: 08/20/20 08:49 The patient was given Pepcid, Protonix, and acetaminophen. His labs were reviewed. Other than a mild leukocytosis there are no new abnormalities. Given that he is pain-free and has a completely benign exam I see no indication for advanced imaging at this point. 08/20/20 09:40 Patient was reassessed at 940. His abdominal pain improved. He has had no recurrences. His neck pain still bothers him some. My plan will be to discharge him home on omeprazole once a day have him use acetaminophen, heat and cold alternating, and stretching exercises that I demonstrated to him, for his neck pain. He should follow-up with his primary care provider within 7 to 10 days for recheck. - Vital Signs Vital signs: Temp Pulse Resp BP Pulse Ox 98.3 F 72 16 116/69 98 08/20/20 07:08 08/20/20 07:08 08/20/20 02:35 08/20/20 07:08 08/20/20 07:08 - Laboratory Results Result Diagrams: 08/20/20 03:40 08/20/20 03:40 Laboratory Results Interpreted: 08/20/20 08/20/20 03:40 03:40 WBC 13.8 H Hgb 13.0 L RDW 15.3 H Absolute Neuts (auto) 10.3 H BUN 21 H Creatinine 1.58 H Est GFR ( Amer) 57 L Est GFR (MDRD) Non-Af 47 L Glucose 138 H Critical Laboratory Results Reviewed: No Critical Results - Radiology Results Critical Radiology Results Reviewed: No Critical Results Discharge - Discharge Clinical Impression: Epigastric abdominal pain, Neck pain Condition: Good Disposition: HOME, SELF-CARE Instructions: Abdominal Pain ([facility]) Additional Instructions: A prescription for omeprazole to reduce stomach acid has been sent to your pharmacy. Please pick this up and start taking it tomorrow according to label directions. Use Tylenol according to label directions for your neck pain. You can do the stretching exercises that I demonstrated for you and that we did together here in the emergency department and do 5 repetitions 2 or 3 times a day which will also help. You can use alternating heat and cold on your neck. Use a heating pad for 15 minutes. Then use a cold pack for 15 minutes. Make sure you protect your skin with a towel from both the heating pad and the cold pack so that you do not injure your skin. Follow-up with your regular doctor in 7 to 10 days for recheck. Return here sooner if any concerning symptoms develop. Prescriptions: Omeprazole 40 mg PO DAILY #30 capsule. Referrals: [facility] [Primary Care Provider] - Follow up as needed
[2020-08-20 10:02] VITALS: BP 120/58
== END 2020-08-20 09:50 | disposition home or self-care (01) ==
LOC: ER 02:20
DX: R10.13 Epigastric pain (principal); R51.9 Headache, unspecified; M54.2 Cervicalgia; D72.829 Elevated white blood cell count, unspecified; E66.01 Morbid (severe) obesity due to excess calories; E11.9 Type 2 diabetes mellitus without complications; I10 Essential (primary) hypertension; Z79.84 Long term (current) use of oral hypoglycemic drugs; Z79.899 Other long term (current) drug therapy; Z90.49 Acquired absence of other specified parts of digestive tract
CPT/HCPCS: 99283; 36415; 83690; 85025; 80053; 81001; J3490